=== PATIENT | female | born 1985 | race Caucasian/White ===

== ENCOUNTER 2016-08-23 18:34 | Observation (INO) | payer OTHER ==
[~2016-08-23 18:34] MED LIST: DEXAMETHASONE SOD PHOSPHATE INJ 4 MG/1 ML VIAL ONE; LIDOCAINE 2% INJ-PF (20 MG/ML) 10 ML AMPUL ONE; METOCLOPRAMIDE HCL INJ/PF 10 MG/2 ML SDV ONE; ONDANSETRON HCL INJ/PF 4 MG/2 ML SDV ONE; SUCCINYLCHOLINE CHLORIDE INJ 200 MG/10 ML VIAL ONE
[2016-08-23] MEDS ORDERED: ACETAMINOPHEN 0 ML IV ONE (19:16)
[2016-08-23] MEDS ORDERED: MIDAZOLAM 2 MG/2 ML INJ ONE (19:16)
[2016-08-23] MEDS ORDERED: EPHEDRINE SULFATE INJ 50 MG/1 ML AMPULE ONE (19:16)
[2016-08-23] MEDS ORDERED: FENTANYL CITRATE INJ/PF 250 MCG/5 ML AMPULE ONE (19:16)
[2016-08-23] MEDS ORDERED: PROPOFOL INJ 200 MG/20 ML VIAL IV ONE (19:16)
[2016-08-23] MEDS ORDERED: DEXMEDETOMIDINE INJ 80 MCG/20 ML VIAL IV ONE (19:17)
[2016-08-23] MEDS ORDERED: DEXTROSE 5%-1/2 NORMAL SALINE 1,000 ML IV PRN (20:17)
[2016-08-23] MEDS ORDERED: FENTANYL CITRATE INJ/PF 100 MCG/2 ML AMPUL ONE (21:04)
[2016-08-23] MEDS ORDERED: PROMETHAZINE HCL INJ 25 MG/1 ML VIAL IV PRN ×2 (21:59)
[2016-08-23] MEDS ORDERED: DIPHENHYDRAMINE HCL 50 MG/ML VIAL IV PRN (21:59)
[2016-08-23] MEDS ORDERED: MEPERIDINE HCL/PF INJ 25 MG/1 ML DISP.SYRIN IV PRN (21:59)
[2016-08-23] MEDS ORDERED: ONDANSETRON HCL INJ/PF 4 MG/2 ML SDV IV PRN (21:59)
[2016-08-23] MEDS ORDERED: MORPHINE SULFATE 10 MG/ML INJ IV PRN (21:59)
[2016-08-23] MEDS ORDERED: FENTANYL CITRATE INJ/PF 100 MCG/2 ML AMPUL IV PRN ×3 (21:59)
--- NOTE | 2016-08-23 22:28 | DISCHARGE SUMMARY E ---
Discharge Summary NAME: AFIA LOREDO : 1985 AGE: 31Y ADMITTED: 08/23/2016 DISCHARGED: HOSPITAL COURSE: This patient is status post EGD with intragastric balloon removal, which was performed in the OR. The patient had tolerated the procedure well. No immediate postop complications were noted. The patient has been given instructions for followup in the office in the next few weeks and also to continue PPI therapy as already prescribed. Plan of care was discussed with the patient and family members. CONDITION ON DISCHARGE: Stable. DICTATING PHYSICIAN: SHALOM REINOSO M.D. [id number] PHY#: [id number] ID: [id number] JOB#: [id number] ACCT: [id number] cc:SHALOM REINOSO M.D. >
[2016-08-23 23:11] VITALS: BP 121/82
--- NOTE | 2016-08-24 13:24 | HISTORY AND PHYSICAL E ---
History and Physical NAME: AFIA LOREDO : 1985 AGE: 31Y ADMITTED: 08/23/2016 ROOM: 228 HISTORY OF PRESENT ILLNESS: The patient is a 31-year-old white female who presented with symptoms of nausea and vomiting post intragastric balloon placement. Exam is being performed for intragastric balloon removal. MEDICATION: Patient received general anesthesia. Vital signs are stable. FINDINGS: The stomach showed evidence of intragastric balloon in the region of the gastric fundus. The balloon was pierced using a dedicated removal device; 600 mL of saline was drained from the balloon. Post drainage of the saline, a Pincer forceps for balloon removal. Removal was easily accomplished without difficulty. It was removed in its entirety. In esophagus, a mild esophagitis likely due to nausea and vomiting. Use of standard port EGD. IMPRESSION: Status post intragastric balloon removal. PLAN: 1. Continue for the next week or two. 2. Will follow in the office upon discharge. 3. Patient will be discharged tonight when she is awake. DICTATING PHYSICIAN: SHALOM REINOSO M.D. [id number] PHY#: [id number] ID: [id number] JOB#: [id number] ACCT: [id number] cc:SHALOM REINOSO M.D. >
--- NOTE | 2016-08-24 13:27 | HISTORY AND PHYSICAL E ---
History and Physical NAME: AFIA LOREDO : 1985 AGE: 31Y ADMITTED: 08/23/2016 ROOM: 228 HISTORY OF PRESENT ILLNESS: The patient is a 31-year-old white female who underwent intragastric balloon placement on 08/13/2016 as an outpatient. Started having some nausea, vomiting with diarrhea that started on 08/22/2016. This became intractable, and she presented to the Emergency Room at [facility], and the ER physician reached out to me about this yesterday evening, and at the time, I recommended for patient to be started on IV Zofran and IV Reglan and possible placement of NG tube if vomiting does not respond to the above measures. This morning, I got another call from [facility]. The patient continues to have nausea and vomiting and desired to have her intragastric balloon removed. Therefore, transfer was arranged for [facility] Initial plan for transfer was to [facility]; however, the wait time for transfer was 24-36 hours for [facility] so we decided to transfer her to [facility] as mentioned earlier. I am evaluating her today this evening at [facility]. She has had about 2-3 episodes of vomiting today and feels better than she did yesterday, and she is still intent on having her balloon removed. I have explained to the patient and her and her mother that there is a good chance that the worse is behind her and that she may be able to tolerate the intragastric balloon going forward and that we could reassess in the next day to make the decision regarding removal; however, patient again insists on having removal performed tonight. The endoscopy team has been informed and available and waiting on the OR for availability for the procedure. PAST MEDICAL HISTORY: Non-contributory. PAST SURGICAL HISTORY: Non-contributory. HOME MEDICATIONS: Home medication list is reviewed and noted. ALLERGIES: As per chart. SOCIAL HISTORY: Lives at home with family. Does not smoke or drink. FAMILY HISTORY: Non-contributory at this point. ASSESSMENT AND PLAN: Patient with symptoms maybe secondary to intragastric balloon, i.e. nausea, vomiting; however, she also has a component of diarrhea. Possible acute gastroenteritis. PLAN: 1. I have discussed with the patient regarding possibly observing overnight for further improvement as she has shown clinical improvement today; however, patient insists on proceeding intragastric balloon removal so we will proceed as such. 2. The risks of removal were discussed with the patient not limited to risk of aspiration. Risk of perforation and pharyngeal injuries were also discussed. Bleeding, infection that may require further prolongation in her hospitalization. These risks were by patient, her , and her mother, and all consented to proceed with the removal. 3. We will place an NG tube to hopefully drain whatever fluid may be left in the stomach at this point. I have explained to the patient that this will further reduce the likelihood of aspiration during induction of anesthesia and during balloon removal. 4. Hopefully, we will be able to discharge patient post removal tonight to follow up in the office for further care. DICTATING PHYSICIAN: SHALOM REINOSO M.D. [id number] PHY#: [id number] ID: [id number] JOB#: [id number] ACCT: [id number] cc:SHALOM REINOSO M.D. >
== END 2016-08-24 00:01 | disposition home or self-care (01) ==
LOC: 2S 18:34 → INOR 18:34 → UNDOADMOB 18:34
PROVIDERS: ADMIT Internal Medicine Gastroenterology; ATTEND Internal Medicine Gastroenterology
PROC: 0DC68ZZ Extirpation of Matter from Stomach, Via Natural or Artificial Opening Endoscopic (ICD-10-PCS; principal; 2016-08-23 21:00)
DX: Z46.59 Encounter for fitting and adjustment of other gastrointestinal appliance and device (principal); R11.2 Nausea with vomiting, unspecified; R19.7 Diarrhea, unspecified
CPT/HCPCS: 43247; G0378 ×2; J2250; J1100; J3010; J2765; J0330; J2405; J2704; J3490 ×2; 740; J0131